=== PATIENT | male | born 1985 | race Caucasian/White ===

== ENCOUNTER 2019-10-22 07:13 | Emergency (ER) | payer BC, OTHER ==
[2019-10-22 07:28] VITALS: TEMP 97.6; BMI 27.3
--- NOTE | 2019-10-22 07:48 | PDOC ---
*Physical Exam - Vital Signs Last Vital Signs Temp Pulse Resp BP Pulse Ox 97.6 F 77 18 120/81 99 10/22/19 07:25 10/22/19 07:25 10/22/19 07:25 10/22/19 07:25 10/22/19 07:25 ED Treatment Course - LABORATORY CBC & Chemistry Diagram: 10/22/19 08:00 10/22/19 08:00 Medical Decision Making - Medical Decision Making 10/22/19 08:21 Patient seen as pre-attending w/Dr. Mccormick (PGY-1, IM) and Dr. Reyes ( Attending) 34 y/o male with acute onset of abdominal pain. Pain is sharp, localized to his LLQ and intermittent No fevers/chills, nausea/vomiting, last BM was two days previous- note h/o constipation. States he ate shrimp, undercooked steak and cheese last night, has h/o abdominal cramping with dairy intake; @ bedside ate shrimp and undercooked steak, no similar Sx 10/22/19 08:37 Patient assessed @ bedside no abdominal TTP Bedside renal U/S shows no hydro, will obtain dry CT to evaluate for stone 10/22/19 09:47 Patient had minimal bowel movement; requesting enema 10/22/19 10:15 CTAP shows 0.3 x 0.2 cm distal L ureteral calculus with associated hydronephrosis - will d/c home with Flomax, urology referral, NSAIDS for analgesia Discharge - Discharge Information Problems reviewed: Yes Clinical Impression/Diagnosis: Renal calculus or stone Condition: Improved Disposition: HOME - Admission No - Additional Discharge Information Prescriptions: Acetaminophen [Tylenol] 325 mg PO Q6H #120 capsule Tamsulosin HCl [Flomax] 0.4 mg PO DAILY PRN 7 Days #7 cap.er.24h PRN Reason: Back Pain - Follow up/Referral Referrals: Dave Willis MD [Primary Care Provider] - Jona Young MD [Staff Physician] - - Patient Discharge Instructions Patient Printed Discharge Instructions: Kidney Stones -- Adult Additional Instructions: you have a smll kidney stone in your left ureter ( the tube that carries urine between your kidney and bladder ) this can cause severe pain and blood in your urine. you can take motrin 600 mg every 8 hours as needed for pain. return for any inability to urinate, fever, pain not relieved by medicaiton or any concerns. you can follow up with a urologist DR Butterfield. call to schedule . see referral information for phone number. most stones will past in 48 - 72 hrs, but may take up to 1 - 2 weeks. - Post Discharge Activity
--- NOTE | 2019-10-22 08:18 | PDOC ---
History of Present Illness - General Chief Complaint: Pain Stated Complaint: ABD PAIN Time Seen by Provider: 10/22/19 07:45 Past History - Past Medical History Allergies/Adverse Reactions: Allergies Allergy/AdvReac Type Severity Reaction Status Date / Time No Known Allergies Allergy Verified 10/22/19 07:28 Home Medications: Ambulatory Orders Acetaminophen [Tylenol] 325 mg PO Q6H #120 capsule 10/22/19 Bifidobacterium Infantis [Align] 1 tab PO DAILY 10/22/19 Tamsulosin HCl [Flomax] 0.4 mg PO DAILY PRN 7 Days #7 cap.er.24h 10/22/19 COPD: No - Psycho Social/Smoking Cessation Hx Smoking History: Never smoked *Physical Exam - Vital Signs Last Vital Signs Temp Pulse Resp BP Pulse Ox 97.6 F 77 18 120/81 99 10/22/19 07:25 10/22/19 07:25 10/22/19 07:25 10/22/19 07:25 10/22/19 07:25 - Physical Exam 10/22/19 08:29 34 y/o with no reported PMH c/o abdominal pain since 10/22/19 06:00. The pain is located in the LLQ, occurred suddenly waking him up from sleep, aching, non- radiating, 8/10 onset now only discomfort. The pain is associated with rare steak and shrimp dinner at [employer] in [place]; shared meal and does not have similar presentation . Pain is also assoc with baseline constipation. He recently started an OTC probiotic (Align) that helps his constipation. He has no reported recent illness, sick contacts or travel. He denies NVFD. No fam h/o UC/Crohn. He was recently seen by PCP Dr. Dave Willis. He does report frequent flatulence and eructation. Last BM 2 days ago NB, non- mucous. REVIEW OF SYSTEMS CONSTITUTIONAL: Absent: fever, chills, diaphoresis, generalized weakness, malaise, loss of appetite, weight change HEENT: Absent: rhinorrhea, nasal congestion, throat pain, throat swelling, difficulty swallowing, mouth swelling, ear pain, eye pain, visual changes CARDIOVASCULAR: Absent: chest pain, syncope, palpitations, irregular heart rate, lightheadedness , peripheral edema RESPIRATORY: Absent: cough, shortness of breath, dyspnea with exertion, orthopnea, wheezing, stridor, hemoptysis GASTROINTESTINAL: Absent: abdominal pain, abdominal distension, nausea, vomiting, diarrhea, constipation, melena, hematochezia GENITOURINARY: Absent: dysuria, frequency, urgency, hesitancy, hematuria, flank pain, genital pain MUSCULOSKELETAL: Absent: myalgia, arthralgia, joint swelling, back pain, neck pain SKIN: Absent: rash, itching, pallor HEMATOLOGIC/IMMUNOLOGIC: Absent: easy bleeding, easy bruising, lymphadenopathy, frequent infections ENDOCRINE: Absent: unexplained weight gain, unexplained weight loss, heat intolerance, cold intolerance NEUROLOGIC: Absent: headache, focal weakness or paresthesias, dizziness, unsteady gait, seizure, mental status changes, bladder or bowel incontinence PSYCHIATRIC: Absent: anxiety, depression, suicidal or homicidal ideation, hallucinations. GENERAL: AOx3, in no acute distress. HEAD: NCAT EYES: JOVANNY, EOMI, conjunctiva clear. ENT: Ears normal, nares patent, oropharynx clear without exudates. Moist mucous membranes. NECK: Normal range of motion, supple without lymphadenopathy, JVD, or masses. LUNGS: CTAB. No wheezes, and no crackles. No accessory muscle use. HEART: RRR s1 s2 ABDOMEN: Soft, BS present in all 4 quadrants, non-distended, no JVD, no guarding , no rigidity. JP declined at this time, will revisit. MUSCULOSKELETAL: No bony deformities or tenderness. No CVA tenderness. UPPER EXTREMITIES: 2+ pulses, warm, well-perfused. No cyanosis. No clubbing. No peripheral edema. LOWER EXTREMITIES: 2+ pulses, warm, well-perfused. No calf tenderness. No peripheral edema. NEUROLOGICAL: No focal deficits. Cranial nerves II-XII intact. Normal speech. Gait not appreciated. PSYCHIATRIC: Cooperative. Good eye contact. Appropriate mood and affect. SKIN: Warm, dry, normal turgor, no rashes or lesions noted, normal capillary refill. A/P Constipation vs noxious food ingestion vs viral gastritis - Serial abdominal exams - Mag/hydroxide - Famotidine - NS 10/22/19 08:58 Ab exam presently the same Pt reports increased flatulence 10/22/19 09:17 Ab exam presently the same Pt reports feeling better. Still no BM 10/22/19 12:53 CT pos for 0.3x0.2 cm ureteral stone LEFT Will dc home with tamsulosin and tylenol General Appearance: Yes: Nourished ED Treatment Course - LABORATORY CBC & Chemistry Diagram: 10/22/19 08:00 10/22/19 08:00 Discharge - Discharge Information Problems reviewed: Yes Clinical Impression/Diagnosis: Renal calculus or stone Condition: Improved Disposition: HOME - Additional Discharge Information Prescriptions: Acetaminophen [Tylenol] 325 mg PO Q6H #120 capsule Tamsulosin HCl [Flomax] 0.4 mg PO DAILY PRN 7 Days #7 cap.er.24h PRN Reason: Back Pain - Follow up/Referral Referrals: Dave Willis MD [Primary Care Provider] - Jona Young MD [Staff Physician] - - Patient Discharge Instructions Patient Printed Discharge Instructions: Kidney Stones -- Adult Additional Instructions: you have a smll kidney stone in your left ureter ( the tube that carries urine between your kidney and bladder ) this can cause severe pain and blood in your urine. you can take motrin 600 mg every 8 hours as needed for pain. return for any inability to urinate, fever, pain not relieved by medicaiton or any concerns. you can follow up with a urologist DR Butterfield. call to schedule . see referral information for phone number. most stones will past in 48 - 72 hrs, but may take up to 1 - 2 weeks. - Post Discharge Activity
[2019-10-22] MEDS ORDERED: MAG HYDROX/AL HYDROX/SIMETH -MYLANTA- ORAL SUSPENSION PO ONE (08:24)
[2019-10-22] MEDS ORDERED: MAGNESIUM CITRATE 300 ML BOTTLE PO ONE (08:24)
[2019-10-22] MEDS ORDERED: FAMOTIDINE 20 MG TABLET PO ONE (08:26)
[2019-10-22] MEDS ORDERED: SODIUM CHLORIDE 0.9% 500 ML INFUS.BAG IV ONE (08:27)
[2019-10-22] MEDS ORDERED: FAMOTIDINE 20 MG/50 ML IVPB 20 MG/50 ML MG IVPB ONE ×2 (08:28→08:32)
[2019-10-22] MEDS ORDERED: MAGNESIUM CITRATE 300 ML BOTTLE ONE (08:31)
[2019-10-22] MEDS ORDERED: MAG HYDROX/AL HYDROX/SIMETH 30 ML UNIT-DOSE CUP ONE (08:32)
[2019-10-22 08:50] LABS: BASO % 0.2 % (0-2.0); EOS % 2.7 % (0-4.5); HEMATOCRIT 43.6 % (35.4-49); MCH 30.1 pg (25.7-33.7); MCHC 34.5 g/dl (32.0-35.9); MEAN CELL VOLUME 87.2 fl (80-96); MEAN PLT VOLUME 9.5 fl (7.5-11.1); NEUT % 69.1 % (42.8-82.8); PLATELET COUNT 211 K/MM3 (134-434); WHITE BLOOD COUNT 5.4 K/mm3 (4.0-10.0)
[2019-10-22 09:13] LABS: ALBUMIN 4.4 g/dl (3.4-5.0); BLOOD UREA NITROGEN 16.8 mg/dL (7-18); CALCIUM 9.2 mg/dL (8.5-10.1); POTASSIUM 4.2 mmol/L (3.5-5.1); TOT PROT 7.2 g/dl (6.4-8.2)
--- NOTE | 2019-10-22 09:52 | PDOC ---
Attending Attestation - Resident Resident Name: Rob Mccormick - ED Attending Attestation I have performed the following: I have examined & evaluated the patient, The case was reviewed & discussed with the resident, I agree w/resident's findings & plan, Exceptions are as noted - HPI HPI: 10/22/19 09:50 34 yo male h/o consitption here with c/o sharp llq pain. happened round 6 am. mild resolution. last bm was 2 days ago. no h/o renal stones. no h/o diverticulitis. no n/v no f/c attributed sxs to bad food he ate at a restaurant night prior. - Physicial Exam PE: 10/22/19 09:51 awake alert lungs clear bilat heart rrrno mrg abd soft nt nd no cva tendernes. aler oriented x 3. - Medical Decision Making 10/22/19 09:51 34 yo M h/o constipation with shrap llq pain. nontender abd on exam. differential divrticulitis ( less likely based on nontender exam) gas cramps uti , renal colic. plan us renal. ua enema. reassess. 10/22/19 12:48 large hematuria noted in ua. ct renal stone protocol ordered. 2 x 3 mm stone left side, no hydro. pt currently pain free. dc home wih flomax motrin and fu Dr Butterfield urology.
[2019-10-22 10:06] LABS: EPI CELLS 0.9 /HPF (0-5/HPF); HYALINE CASTS 2 /lpf (0-8); PH,URINE 6.5 (5.0-8.0); URINE APPEARANCE CLEAR; URINE BACTERIA 0.5 /hpf (NEGATIVE); URINE BILIRUBIN NEGATIVE (NEGATIVE); URINE COLOR YELLOW; URINE GLUCOSE (UA) NEGATIVE (NEGATIVE); URINE KETONE NEGATIVE (NEGATIVE); URINE LEUK ESTERASE NEGATIVE (NEGATIVE); URINE NITRITE NEGATIVE (NEGATIVE); URINE PROTEIN 1+ (NEGATIVE); URINE RBC 413 /hpf (0-4); URINE UROBILINOGEN 0.2 mg/dL (0.2-1.0); URINE WBC 2 /hpf (0-5)
[2019-10-22] MEDS ORDERED: SODIUM PHOSPHATE/NA BIPHOS 133 ML ENEMA PR ONE (10:15)
[2019-10-22 13:05] VITALS: BP 110/81; PULSE 80
== END 2019-10-22 13:06 | disposition home or self-care (01) ==
LOC: JER 07:13
PROC: 3E033GC Introduction of Other Therapeutic Substance into Peripheral Vein, Percutaneous Approach (ICD-10-PCS; principal; 2019-10-22)
DX: N20.2 Calculus of kidney with calculus of ureter (principal)
CPT/HCPCS: 36415; 74176-TC; 76775; 80053; 81003; 83690; 85025; 87086; 99285-25

== ENCOUNTER 2023-01-21 08:16 | Emergency (ER) | payer OTHER ==
[2023-01-21 08:27] VITALS: BP 143/86; PULSE 73; RESP 17; TEMP 98.5; BMI 27.3
[2023-01-21] MEDS ORDERED: SODIUM CHLORIDE 1,000 ML IV STA (08:50)
[2023-01-21] MEDS ORDERED: ACETAMINOPHEN 1000 MG/100 ML BAG IVPB ONE (08:50)
[2023-01-21] MEDS ORDERED: ONDANSETRON 4 MG/2 ML VIAL IVPUSH ONE (08:50)
[2023-01-21] MEDS ORDERED: ACETAMINOPHEN INJECTION 100 ML IVPB ONE (09:00)
[2023-01-21] MEDS ORDERED: ONDANSETRON 4 MG/2 ML VIAL ONE (09:01)
[2023-01-21 09:26] LABS: BASO % 0.3 % (0-2.0); EOS % 1.9 % (0-4.5); HEMOGLOBIN 15.3 GM/dL (11.7-16.9); LYMPH % 33.5 % (8-40); MCH 30.1 pg (25.7-33.7); MCHC 35.6 g/dl (32.0-35.9); MEAN CELL VOLUME 84.4 fl (80-96); MEAN PLT VOLUME 9.4 fl (7.5-11.1); MONO % 9.2 % (3.8-10.2); NEUT % 55.1 % (42.8-82.8); PLATELET COUNT 205 10^3/uL (134-434); RDW 14.5 % (11.9-15.9); WHITE BLOOD COUNT 5.1 K/mm3 (4.0-10.0)
[2023-01-21 09:40] LABS: POTASSIUM 4.4 mmol/L (3.5-5.1)
[2023-01-21 09:42] LABS: CALCIUM 9.3 mg/dL (8.5-10.1)
[2023-01-21 09:43] LABS: ALBUMIN 4.4 g/dl (3.4-5.0)
[2023-01-21 09:46] LABS: CREATININE 1.2 mg/dL (0.55-1.3)
[2023-01-21 09:48] LABS: BILIRUBIN,TOTAL 2.6 mg/dL (0.2-1); TOT PROT 7.6 g/dl (6.4-8.2)
[2023-01-21 11:19] LABS: EPI CELLS 4 /uL (0-25.1); HYALINE CASTS 1 /uL (0-3.1); URINE APPEARANCE CLEAR; URINE BACTERIA 3 /uL (0-1359); URINE BILIRUBIN NEGATIVE (NEGATIVE); URINE COLOR DK YELLOW; URINE GLUCOSE (UA) NEGATIVE (NEGATIVE); URINE KETONE TRACE (NEGATIVE); URINE LEUK ESTERASE NEGATIVE (NEGATIVE); URINE NITRITE NEGATIVE (NEGATIVE); URINE PROTEIN NEGATIVE (NEGATIVE); URINE RBC 49 /uL (0-23.9); URINE UROBILINOGEN 0.2 mg/dL (0.2-1.0); URINE WBC 4 /uL (0-25.8)
== END 2023-01-21 11:46 | disposition home or self-care (01) ==
LOC: JER 08:16
PROC: 3E033NZ Introduction of Analgesics, Hypnotics, Sedatives into Peripheral Vein, Percutaneous Approach (ICD-10-PCS; principal; 2023-01-21)
PROC: 3E033GC Introduction of Other Therapeutic Substance into Peripheral Vein, Percutaneous Approach (ICD-10-PCS; 2023-01-21)
PROC: 3E0337Z Introduction of Electrolytic and Water Balance Substance into Peripheral Vein, Percutaneous Approach (ICD-10-PCS; 2023-01-21)
DX: N23 Unspecified renal colic (principal)
CPT/HCPCS: 36415; 74176-TC; 80053; 81003; 83690; 85025; 87077; 87086; 99284-25